=== PATIENT | female | born 1930 | race Caucasian/White ===

== ENCOUNTER → 2016-07-14 | Outpatient (CLI) | payer MEDICARE, OTHER | LOC: RAD 14:58 | PROVIDERS: ATTEND Internal Medicine | DX: M87.022 Idiopathic aseptic necrosis of left humerus (principal); M87.822 Other osteonecrosis, left humerus ==

== ENCOUNTER → 2016-09-09 | Outpatient (CLI) | payer MEDICARE, OTHER ==
[~2016-09-09] MED LIST: ALBUTEROL SULFATE 0.083% NEB 2.5 MG/3 ML AMPUL NEB ONE
--- NOTE | 2016-09-10 09:07 | PULMONARY FUNCTION TEST ---
DATE OF SERVICE: 09/09/2016 THE VITAL CAPACITY IS SLIGHTLY DECREASED. THE EXPIRATORY FLOW RATES ARE SLIGHTLY DECREASED. THE FEV1/VC IS 61%, PREDICTED: 81% LUNG VOLUMES BY NITROGEN WASH OUT METHOD SHOW: TLC IS 99% OF PREDICTED FRC IS 108% OF PREDICTED RV IS 114% OF PREDICTED THE DLCO IS 10.0, 73% OF PREDICTED. THE RV/TLC RATIO IS 53% PREDICTED 44% AFTER BRONCHODILATOR, EXPIRATORY FLOW RATES SHOW NO SIGNIFICANT CHANGE. IMPRESSION: GOOD PATIENT EFFORT SLIGHT OBSTRUCTIVE DEFECT LUNG VOLUMES ARE NORMAL DIFFUSING CAPACITY IS SLIGHTLY DECREASED. CC: ANDRES MULLEN MD > MARI
== END ==
LOC: RT 12:28
PROVIDERS: ATTEND Internal Medicine Cardiovascular Disease
DX: R06.02 Shortness of breath (principal)
CPT/HCPCS: 94729 ×2; 94727 ×2; 94060 ×2; A9270

== ENCOUNTER → 2016-09-14 | Outpatient (CLI) | payer MEDICARE, OTHER ==
--- NOTE | 2016-09-14 14:50 | RADIOLOGY REPORT (SQ) ---
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 TECHNIQUE: Grayscale ultrasound, Doppler velocity and spectra, and color Doppler images acquired of the extra-cranial carotid and vertebral arteries. Images stored on PACS. LIMITATIONS: None. FINDINGS: RIGHT CAROTID CCA Velocities: Within normal limits. ICA Velocities Peak systolic 0.76 m/s. End diastolic 0.18 m/s. Proximal ICA/CCA peak systolic ratio 1.3. Spectra normal. No significant plaque. LEFT CAROTID CCA Velocities: Within normal limits. ICA Velocities Peak systolic 0.71 m/s. End diastolic 0.18 m/s. Proximal ICA/CCA peak systolic ratio 1.2. Spectra normal. No significant plaque. VERTEBRAL ARTERIES: Antegrade flow. Normal waveforms. SUBCLAVIAN ARTERIES: No finding. OTHER: No other significant finding. IMPRESSION: NO HEMODYNAMICALLY SIGNIFICANT STENOSIS. COMMENT: Quality ID #[id number]: Velocity criteria are extrapolated from the diameter data as defined by t he Society of Radiologists in Ultrasound Consensus Conference. Radiology 2003: 229; 340-346. TECHNICAL DOCUMENTATION: JOB ID: [id number] [employer]- All Rights Reserved
== END ==
LOC: SP 12:50
PROVIDERS: ATTEND Internal Medicine Cardiovascular Disease
DX: I66.9 Occlusion and stenosis of unspecified cerebral artery (principal)
CPT/HCPCS: 93880

== ENCOUNTER 2017-07-22 09:07 | Day surgery (SDC) | payer MEDICARE, OTHER ==
[2017-07-22] MEDS ORDERED: NALOXONE HCL INJ/PF 0.4 MG/1 ML SDV ONE (09:12)
[2017-07-22] MEDS ORDERED: ONDANSETRON HCL INJ/PF 4 MG/2 ML SDV ONE (09:12)
[2017-07-22] MEDS ORDERED: FENTANYL CITRATE INJ/PF 100 MCG/2 ML AMPUL ONE (09:13)
[2017-07-22] MEDS ORDERED: FLUMAZENIL INJ 0.5 MG/5 ML VIAL ONE (09:13)
[2017-07-22] MEDS ORDERED: GLUCAGON,HUMAN RECOMB 1 MG INJ ONE (09:13)
[2017-07-22] MEDS ORDERED: MIDAZOLAM 2 MG/2 ML INJ ONE (09:13)
[2017-07-22] MEDS ORDERED: EPINEPHRINE INJ 1 MG/10 ML DISP.SYRIN ONE (09:13)
--- NOTE | 2017-07-22 10:18 | Operative Report ---
Operative Report DATE OF SURGERY: 07/22/17 PREOPERATIVE DIAGNOSIS: 1. History of gastrointestinal stromal tumor, status post partial gastrectomy POSTOPERATIVE DIAGNOSIS: Same with gastritis and mild inflammation at the gastrectomy staple line OPERATION: 1. Esophagogastroduodenoscopy. 2. Gastric cold forceps biopsies of antrum and mucosa adjacent to staple line SURGEON: ADDY VALDOVINOS ANESTHESIA: Moderate Sedation TISSUE REMOVED OR ALTERED: Cold forceps biopsies of gastric mucosa COMPLICATIONS: None ESTIMATED BLOOD LOSS: Scant INTRAOPERATIVE FINDINGS: See below PROCEDURE: Patient was taken from the preop area to the endoscopy suite [facility] where she was placed in semirecumbent position, monitoring devices attached, and surgical timeout was conducted. Appropriate level of conscious sedation was achieved via intravenous delivery of Versed and fentanyl. Oral mouthpiece inserted, and hypopharynx anesthetized with topical lidocaine The flexible adult upper endoscope was advanced through the oropharynx, down the esophagus through the stomach and into the duodenum. The findings are significant for a normal first and second portion of the duodenum. The scope was brought through the pylorus. There was mild erythema in the pyloric channel and a cold forceps biopsy was obtained. Bleeding was minimal. There is no evidence of tumor stricture or stenosis. The stomach was significant for post partial gastrectomy ranges which were photographed. There was no evidence of tumor stricture bleeding. There was some mildly eroded mucosa adjacent to the staple line which is photographed and biopsied with cold forceps device. The remainder of the stomach was unremarkable except for some retained yellow liquid food material. Scope was retroflexed in the stomach and no other pathologic findings identified Scope was brought back through the GE junction. No induration or inflammation identified. The remainder the esophagus was unremarkable. Scope was withdrawn the patient's oropharynx. She tolerated procedure well.
--- NOTE | 2017-07-22 10:19 | Discharge Summary ---
Discharge Summary (SDC) - Discharge Final Diagnosis: 1. History of gastrointestinal stromal tumor 2. Mild gastritis Date of Surgery: 07/22/17 Discharge Date: 07/22/17 Condition: Good Treatment or Instructions: [address] [address] POST ENDOSCOPY DISCHARGE INSTRUCTIONS 1. Diet: Start clear liquids that a regular diet as tolerated. 2. Resume all preoperative medications. All oral anticoagulants and aspirins can be resumed 24 hours after procedure. 3. If a polypectomy was performed some bleeding per rectum may occur. This should stop within 3 days. If not, please contact the office. 4. If you had a colonoscopy you may experience some bloating and delayed return of normal bowel function for several days, your regular bowel movement pattern should resume within a week. 5. Please contact [facility] at to make an appointment with Dr. Leonard for 1 to 3 weeks following procedure. 6. If you have any questions or concerns regarding your care,treatment plan or follow up, please contact our office. Referrals: PRATIK JIMENEZ MD [Primary Care Provider] - Discharge Diet: As Tolerated Discharge Activity: Activity As Tolerated Home Care Assistance: None Needed Report the Following to Your Physician Immediately: Shortness of Breath, Increase in Pain, Fever over 101 Degrees
[2017-07-22 11:16] VITALS: BP 152/58
== END 2017-07-22 11:19 | disposition home or self-care (01) ==
LOC: END 09:07
PROVIDERS: ATTEND Surgery
PROC: 0DB68ZX Excision of Stomach, Via Natural or Artificial Opening Endoscopic, Diagnostic (ICD-10-PCS; principal; 2017-07-22 09:45)
DX: K29.70 Gastritis, unspecified, without bleeding (principal); K21.9 Gastro-esophageal reflux disease without esophagitis; D21.4 Benign neoplasm of connective and other soft tissue of abdomen; I71.9 Aortic aneurysm of unspecified site, without rupture; J45.909 Unspecified asthma, uncomplicated; I10 Essential (primary) hypertension; M19.90 Unspecified osteoarthritis, unspecified site; Z88.5 Allergy status to narcotic agent; Z88.8 Allergy status to other drugs, medicaments and biological substances; Z86.010 Personal history of colon polyps; Z79.51 Long term (current) use of inhaled steroids; Z96.651 Presence of right artificial knee joint; Z90.3 Acquired absence of stomach [part of]
CPT/HCPCS: 43239; 88342 ×2; 88305 ×2; J2250; J3010; J2405; J0171; J1610; J2310; J3490

== ENCOUNTER 2018-08-12 14:16 | Emergency (ER) | payer MEDICARE, OTHER ==
[2018-08-12] MEDS ORDERED: NORMAL SALINE 1000 ML 1,000 ML IV ONE (14:50)
--- NOTE | 2018-08-12 14:52 | ER Document Report ---
ED Medical Screen (RME) - General Chief Complaint: Abnormal Lab Results Stated Complaint: ABNORMAL LABS Time Seen by Provider: 08/12/18 14:43 Primary Care Provider: PRATIK JIMENEZ MD [Primary Care Provider] - Follow up as needed Mode of Arrival: Ambulatory Information source: Patient TRAVEL OUTSIDE OF THE [place] IN LAST 30 DAYS: No - HPI Patient complains to provider of: LOW SODIUM Notes: 08/12/18 14:50 Patient here with complaints of low sodium. This is an 88-year-old female who seen in her primary care doctor's office 2 days ago had some labs drawn. She was diagnosed with a urinary tract infection is currently taking Bactrim. She was told today that her sodium is extremely low that she needed to come the evaluated at the hospital. She was told her sodium was 123. She denies any nausea vomiting. She states that she has decreased her salt intake and has been drinking more water. No chest pain or shortness of breath but she does complain of generalized fatigue and weakness. She also states that she fell backwards last evening landing on her buttocks and lower back. She denies striking her head. No loss of consciousness. No neck pain. Exam Nontoxic, no distress. Lungs clear and equal throughout. Systolic murmur noted. Mild tenderness to palpation of the left lumbar spine. No step-offs or crepitus. Ambulation with walker. Nonfocal neuro exam. Plan CBC, CMP, magnesium, urinalysis, saline lock, 500 mL bolus, lumbar x-ray. An initial examination was made on the patient as part of the triage process, and it was determined a more comprehensive evaluation was necessary. Initial labs were ordered and patient was transferred to another provider in the ED who assumed care and finished evaluation and plan. - Related Data Allergies/Adverse Reactions: tramadol [Tramadol] Allergy (Mild, Verified 07/22/17 09:24) stomach upset ibandronate sodium [From Boniva] Allergy (Verified 07/22/17 09:24) sick, increased HR shrimp Allergy (Verified 07/22/17 09:24) ciprofloxacin [From Cipro] Adverse Reaction (Intermediate, Verified 07/22/17 09:24) Dizzy, out of head nitrofurantoin [From Macrobid] Adverse Reaction (Verified 07/22/17 09:24) nitrofurantoin macrocrystalline [From Macrobid] Adverse Reaction (Verified 07/22/17 09:24) Nausea LATEX Allergy (Uncoded 07/19/17 14:48) RASH Past Medical History - Past Medical History Cardiac Medical History: Reports: Hx Hypertension Denies: Hx Coronary Artery Disease, Hx Heart Attack Pulmonary Medical History: Reports: Hx Asthma Denies: Hx Bronchitis, Hx COPD, Hx Pneumonia Neurological Medical History: Denies: Hx Cerebrovascular Accident, Hx Seizures Renal/ Medical History: Denies: Hx Peritoneal Dialysis GI Medical History: Denies: Hx Hepatitis, Hx Hiatal Hernia, Hx Ulcer Musculoskeltal Medical History: Reports Hx Arthritis Infectious Medical History: Denies: Hx Hepatitis Past Surgical History: Reports: Hx Cardiac Surgery - aneurysm, Hx Hysterectomy. Denies: Hx Mastectomy, Hx Open Heart Surgery, Hx Pacemaker - Immunizations Hx Diphtheria, Pertussis, Tetanus Vaccination: Yes Physical Exam - Vital signs Vitals: Temp Pulse Resp BP Pulse Ox 97.9 F 70 16 109/88 H 95 08/12/18 14:36 08/12/18 14:36 08/12/18 14:36 08/12/18 14:36 08/12/18 14:36 Course - Vital Signs Vital signs: Temp Pulse Resp BP Pulse Ox 97.9 F 70 16 109/88 H 95 08/12/18 14:36 08/12/18 14:36 08/12/18 14:36 08/12/18 14:36 08/12/18 14:36 Doctor's Discharge - Discharge Referrals: PRATIK JIMENEZ MD [Primary Care Provider] - Follow up as needed
[2018-08-12] MEDS ORDERED: NORMAL SALINE 1000 ML 500 ML IV ONE (14:53)
--- NOTE | 2018-08-12 15:25 | RADIOLOGY REPORT (SQ) ---
EXAM DESCRIPTION: L SPINE WHOLE COMPLETED DATE/TIME: 08/12/2018 3:13 pm REASON FOR STUDY: FALL, PAIN COMPARISON: None. NUMBER OF VIEWS: Five views including obliques. TECHNIQUE: AP, lateral, oblique, and sacral radiographic images acquired of the lumbar spine. LIMITATIONS: None. FINDINGS: MINERALIZATION: Osteopenia. SEGMENTATION: Normal. No transitional anatomy. ALIGNMENT: There is grade 1 anterolisthesis of L4 on L5. This appears to be degenerative in nature. VERTEBRAE: Very slight irregularity the superior endplate of L2. Mild acute compression deformity is suspected. No retropulsion. DISCS: Multilevel disc space narrowing with osteophytes. POSTERIOR ELEMENTS: Pedicles and facets are intact. No pars defect or posterior arch defects. Facet arthropathy is present. HARDWARE: None in the spine. PARASPINAL SOFT TISSUES: Normal. PELVIS: Intact as visualized. No fractures or worrisome bone lesions. SI joints intact. OTHER: No other significant finding. IMPRESSION: Osteopenia. Multilevel spondylosis. Very slight irregularity along the superior endplate of L2. Acute compression injury cannot be exclu ded. Correlation with MRI may be helpful for further evaluation. The patient may be a candidate for kyphoplasty. TECHNICAL DOCUMENTATION: JOB ID: [id number] [employer]- All Rights Reserved Reading location - IP/workstation name: [email or web address]
[2018-08-12 16:34] LABS: ABSOLUTE EOSINOPHILS # (AUTO) 0.1 10^3/uL (0.0-0.6); ABSOLUTE LYMPHOCYTES (AUTO) 0.7 10^3/uL (0.5-4.7); ABSOLUTE MONOCYTES (AUTO) 0.7 10^3/uL (0.1-1.4); ABSOLUTE NEUT (AUTO) 6.4 10^3/uL (1.7-8.2); BASOPHILS % (AUTO) 0.5 % (0-2); EOSINOPHILS % (AUTO) 1.7 % (0-6); HEMATOCRIT 35.5 % (36.0-47.0); HEMOGLOBIN 12.3 g/dL (12.0-15.5); LYMPHOCYTES % (AUTO) 8.2 % (13-45); MEAN CORPUSCULAR HEMOGLOBIN 30.3 pg (27.0-33.4); MEAN CORPUSCULAR HGB CONC 34.6 g/dL (32.0-36.0); MEAN CORPUSCULAR VOLUME 87 fl (80-97); MONOCYTES % (AUTO) 9.3 % (3-13); PLATELET COUNT 322 10^3/uL (150-450); RED BLOOD COUNT 4.06 10^6/uL (3.72-5.28); RED CELL DISTRIBUTION WIDTH 13.3 % (11.5-14.0); SEGMENTED NEUTROPHILS % (AUTO) 80.3 % (42-78); TOTAL CELLS COUNTED % (AUTO) 100 %
[2018-08-12 16:52] LABS: APPEARANCE,URINE CLEAR; BILIRUBIN,URINE NEGATIVE (NEGATIVE); COLOR,URINE YELLOW; GLUCOSE, URINE NEGATIVE (NEGATIVE); KETONES,URINE NEGATIVE (NEGATIVE); LEUKOCYTE ESTERASE,URINE SMALL (NEGATIVE); NITRITE,URINE NEGATIVE (NEGATIVE); PROTEIN,URINE NEGATIVE (NEGATIVE); URINE SPECIFIC GRAVITY 1.012; UROBILINOGEN,URINE NEGATIVE mg/dL (<2.0)
[2018-08-12 16:57] LABS: ALANINE AMINOTRANSFERASE 36 U/L (9-52); ALBUMIN 4.2 g/dL (3.5-5.0); ALKALINE PHOSPHATASE 88 U/L (38-126); ANION GAP 14 (5-19); ASPARTATE AMINO TRANSFERASE 46 U/L (14-36); BILIRUBIN,DIRECT 0.2 mg/dL (0.0-0.4); BILIRUBIN,TOTAL 0.4 mg/dL (0.2-1.3); BLOOD UREA NITROGEN 40 mg/dL (7-20); CALCIUM 9.2 mg/dL (8.4-10.2); CARBON DIOXIDE 25 mmol/L (22-30); CHLORIDE 90 mmol/L (98-107); GLUCOSE 109 mg/dL (75-110); POTASSIUM 4.5 mmol/L (3.6-5.0); SODIUM 128.6 mmol/L (137-145); TOTAL PROTEIN 7.4 g/dL (6.3-8.2)
[2018-08-12 17:48] VITALS: BP 158/67
--- NOTE | 2018-08-12 17:50 | ER Document Report ---
ED General - General Chief Complaint: Abnormal Lab Results Stated Complaint: ABNORMAL LABS Time Seen by Provider: 08/12/18 14:43 Primary Care Provider: PRATIK JIMENEZ MD [Primary Care Provider] - Follow up as needed Mode of Arrival: Ambulatory Notes: Patient was sent here by her bending roll operator for low sodium level. Patient had some labs drawn on Wednesday, August 10, and her sodium was 123. Additionally, patient has recently been treated with a UTI and is on sulfa medication for another day. Patient's blood pressure has been very erratic, going up and down. She is on metoprolol twice a day for this condition. She had a fall last night and landed on her left buttock. She is able to ambulate with her walker which she uses for ambulation. Patient denies any abdominal pains, chest pains, or shortness of breath. TRAVEL OUTSIDE OF THE [place] IN LAST 30 DAYS: No - Related Data Allergies/Adverse Reactions: tramadol [Tramadol] Allergy (Mild, Verified 07/22/17 09:24) stomach upset ibandronate sodium [From Boniva] Allergy (Verified 07/22/17 09:24) sick, increased HR shrimp Allergy (Verified 07/22/17 09:24) ciprofloxacin [From Cipro] Adverse Reaction (Intermediate, Verified 07/22/17 09:24) Dizzy, out of head nitrofurantoin [From Macrobid] Adverse Reaction (Verified 07/22/17 09:24) nitrofurantoin macrocrystalline [From Macrobid] Adverse Reaction (Verified 07/22/17 09:24) Nausea LATEX Allergy (Uncoded 07/19/17 14:48) RASH Past Medical History - General Information source: Patient - Social History Smoking Status: Unknown if Ever Smoked Family History: Reviewed & Not Pertinent Patient has suicidal ideation: No Patient has homicidal ideation: No - Past Medical History Cardiac Medical History: Reports: Hx Hypertension Pulmonary Medical History: Reports: Hx Asthma Musculoskeletal Medical History: Reports Hx Arthritis Past Surgical History: Reports: Hx Cardiac Surgery - aneurysm, Hx Hysterectomy - Immunizations Hx Diphtheria, Pertussis, Tetanus Vaccination: Yes Hx Pneumococcal Vaccination: 04/12/16 Review of Systems - Review of Systems Notes: REVIEW OF SYSTEMS: CONSTITUTIONAL : Denies fever. EENT: Denies eye, ear, nose or mouth or throat pain or other symptoms. CARDIOVASCULAR: Denies chest pain. RESPIRATORY: Denies cough, chest congestion, or shortness of breath. GASTROINTESTINAL: Denies abdominal pain or nausea, vomiting, or diarrhea. GENITOURINARY: Denies difficulty or painful urinating, urinary frequency, blood in urine. MUSCULOSKELETAL: Denies back or neck pain. Denies joint pain or swelling. Pain in left buttock region to press. Patient can stand and put weight on that leg. Does not have any pain or tenderness in the region of the lumbar spine. SKIN: Denies rash or skin lesions. NEUROLOGICAL: Denies LOC or altered mental status. Denies headache. Denies sensory loss or motor deficits. ALL OTHER SYSTEMS REVIEWED AND NEGATIVE. Physical Exam - Vital signs Vitals: Temp Pulse Resp BP Pulse Ox 97.9 F 70 16 109/88 H 95 08/12/18 14:36 08/12/18 14:36 08/12/18 14:36 08/12/18 14:36 08/12/18 14:36 Interpretation: Normal Notes: PHYSICAL EXAMINATION: GENERAL: Well-appearing, in no acute distress. Does not appear to be in pain. Transfers from walker to bed without difficulty. HEAD: Atraumatic, normocephalic. EYES: Pupils equal round and reactive to light, extraocular movements intact. ENT: oropharynx clear without exudates. Moist mucous membranes. NECK: Normal range of motion, supple. LUNGS: Breath sounds clear and equal bilaterally. HEART: Regular rate and rhythm without murmurs. ABDOMEN: Soft, nontender. No guarding or rebound. No masses. BACK: No tenderness throughout entire back. EXTREMITIES: Normal range of motion without pain. NEUROLOGICAL: Normal speech. Normal sensory, motor, and reflex exams. Awake, alert, and oriented x3. PSYCH: Normal mood, normal affect. SKIN: Warm, dry, no rashes. Course - Re-evaluation Re-evalutation: 08/12/18 19:03 Para lab results show the patient has a sodium of 127, which is only slightly low. Patient has been drinking lots of water during the past week because she has this urinary tract infection. I think the patient's sodium level is somewhat dilutional. We have given her 500 mL of saline IV. I have encouraged her to drink some beverages with sodium. Use some extra table salt. Blood pressure vacillates somewhat, but not seriously. I reassured the patient and family of their significance or insignificance. - Vital Signs Vital signs: Temp Pulse Resp BP Pulse Ox 97.7 F 68 18 158/67 H 96 08/12/18 17:46 08/12/18 17:46 08/12/18 17:46 08/12/18 17:46 08/12/18 17:46 - Laboratory Result Diagrams: 08/12/18 16:15 08/12/18 16:15 Laboratory results interpreted by me: 08/12/18 08/12/18 08/12/18 16:15 16:15 16:15 Hct 35.5 L Seg Neutrophils % 80.3 H Lymphocytes % 8.2 L Sodium 128.6 L Chloride 90 L BUN 40 H Creatinine 1.26 H Est GFR ( Amer) 48 L Est GFR (Non-Af Amer) 40 L AST 46 H Ur Leukocyte Esterase SMALL H - Diagnostic Test Radiology results interpreted by me: 08/12/18 19:05 X-ray of the patient's lumbar spine show degenerative changes and arthritis. There is a question of disc compression at L2, but patient does not have clinically significant pain in that location. She seems to have little pain at all. Discharge - Discharge Clinical Impression: Contusion of pelvis, Hyponatremia, Hypertension Condition: Stable Disposition: HOME, SELF-CARE Additional Instructions: Hyponatremia You have an abnormally low level of serum sodium, called hyponatremia. Low serum sodium may cause weakness, fatigue, confusion, or even seizures. Usually, low sodium is due to taking diuretics (water pills), combined with drinking too much water. It can also be due to excessive vomiting or diarrhea. If no obvious cause is evident, further evaluation will be necessary. If the hyponatremia results from taking diuretics, it's treated by restricting the amount of water you can drink. If it's due to vomiting and diarrhea, it's treated by drinking liberal amounts of rehydration solution (for example Lytren or Pedialyte). A follow-up blood test is often done to see that the sodium is returning to normal. Call the physician if you have severe weakness, muscle twitching or cramping, palpitations (pounding or irregular heartbeat), confusion, headache, seizures, or any other new or alarming symptoms. Your sodium level was low, but not drastically so. Do not drink quite so much water and drink more beverages with sodium in them such as sodas and Gatorade, etc. You may use a little bit of extra salt on your food as tolerated. Have a follow-up appointment by your primary care physician in a week or so to recheck your sodium levels. Your urinalysis does not look like a UTI. I am doing a culture of the urine and if it grows any bacteria, we will contact you until you need a prescription for an antibiotic for further care. USE OF TYLENOL (ACETAMINOPHEN): Acetaminophen may be taken for pain relief or fever control. It's much safer than aspirin, offering a wider range of "safe" dosages. It is safe during . Some brand names are Tylenol, Panadol, Datril, Anacin 3, Tempra, and Liquiprin. Acetaminophen can be repeated every four hours. The following are maximum recommended dosages: WEIGHT Dose Drops Elixir Chewable(80mg) (LBS.) drprs=droppers tsp=teaspoon >89 pounds or adults 650 mg to 900 mg Acetaminophen can be repeated every four hours. Maximum dose not to exceed 4000 mg a day. These maximum recommended dosages are slightly higher than the dosages written on the product container, but these dosages are very safe and below the toxic dosage for acetaminophen. FOLLOW-UP CARE: If you have been referred to a physician for follow-up care, call the physicians office for an appointment as you were instructed or within the next two days. If you experience worsening or a significant change in your symptoms, notify the physician immediately or return to the Emergency Department at any time for re-evaluation. Referrals: PRATIK JIMENEZ MD [Primary Care Provider] - Follow up as needed
== END 2018-08-12 17:55 | disposition home or self-care (01) ==
LOC: ER 14:16
DX: E87.1 Hypo-osmolality and hyponatremia (principal); I10 Essential (primary) hypertension; S30.0XXA Contusion of lower back and pelvis, initial encounter; W19.XXXA Unspecified fall, initial encounter; Y92.009 Unspecified place in unspecified non-institutional (private) residence as the place of occurrence of the external cause; Y99.9 Unspecified external cause status; Z88.3 Allergy status to other anti-infective agents; Z91.040 Latex allergy status; Z90.710 Acquired absence of both cervix and uterus
CPT/HCPCS: 99283; 96360; 36415; 87086; 83735; 85025; 87088; 80053; 81001; 87186; 72110; J7030